=== PATIENT | male | born 1990 | race African-American/Black ===

== ENCOUNTER → 2020-07-24 | Day surgery (SDC) | payer OTHER ==
[~2020-07-24] MED LIST: CYCL-331 PO; FAMOTIDINE 20 MG/2 ML VIAL ONE; GLYCOPYRROLATE 1 MG/5 ML VIAL. ONE; HYDR-2155; HYDR-2155 PO; IPRATRPIUM/ALBUTEROL 0.5/2.5MG 3 ML NEBU. NEB PRN; IV RINGERS SOLUTION,LACTATED 1,000 ML IV SCH; LIDOCAINE 2% PF 5 ML VIAL. ONE; MIDAZOLAM HCL PF 2 MG/2 ML VIAL. IV ONE; ONDANSETRON PF 4 MG/2 ML VIAL. IV PRN; OXYC15TA60 PO; PANT40TA3; PANT40TA3 PO; PROPOFOL 10,000 MCG/ML (20ML) VIAL IV ONE
[2020-07-24 12:50] VITALS: BP 116/65
--- NOTE | 2020-07-29 08:08 | PATHOLOGY ---
[facility] Accession Number: [id number] . 01 Material submitted: . stomach - ANTRUM BIOPSY. Modifiers: ANTRUM . 01 Clinical history: . STOMACH PAIN EGD COLONOSCOPY . 02 Diagnosis: Gastric biopsies, antrum: - Chronic gastritis, mild. (M:[facility]; 07/28/2020) [facility] 07/28/2020 1603 Local . 02 Comment: Sections of the gastric biopsy reveal tangentially oriented segments of gastric antral/body transition mucosa showing congestion and very mild chronic inflammation. A properly controlled immunoperoxidase stain for Helicobacter is negative for Helicobacter organisms. (JPM:[facility]bey; 07/28/2020) . Special stain performed: Immunoperoxidase stain for Helicobacter on A1 . 02 Electronically signed: . Nasir Vega MD, Pathologist NPI- [id number] . 01 Gross description: . The specimen is received in formalin, labeled "Lewis Hagan, antrum biopsy" received as 2 fragments of soft méndez tissue measuring up to 0.6 cm. Entirely submitted in A1. ([facility]; 07/27/2020) [facility] 07/28/2020 1600 Local . 02 Pathologist provided ICD-10: K29.50 . 02 CPT . 723092, [id number] Specimen Comment: A courtesy copy of this report has been sent to [phone] Specimen Comment: Report sent to Performed at: 01 [facility] [address], [place] [id number] MD Emerson Driscoll MD Phone: [phone] Performed at: 02 [facility] [address] [place], [place] [id number] MD Nasir Vega MD Phone: [phone]
== END | disposition home or self-care (01) ==
LOC: SURG 10:34
PROVIDERS: ATTEND Internal Medicine Gastroenterology
DX: R12 Heartburn (principal); K44.9 Diaphragmatic hernia without obstruction or gangrene; K29.50 Unspecified chronic gastritis without bleeding; K21.9 Gastro-esophageal reflux disease without esophagitis; I10 Essential (primary) hypertension; E78.00 Pure hypercholesterolemia, unspecified; Z79.899 Other long term (current) drug therapy
CPT/HCPCS: 43239; J2001; J2704; J3490; J7120

== ENCOUNTER → 2020-08-27 | Outpatient (CLI) | payer OTHER ==
[2020-07-24 12:50] VITALS: BP 116/65
[~2020-08-27] MED LIST changes: -FAMOTIDINE 20 MG/2 ML VIAL ONE; -GLYCOPYRROLATE 1 MG/5 ML VIAL. ONE; -IPRATRPIUM/ALBUTEROL 0.5/2.5MG 3 ML NEBU. NEB PRN; -IV RINGERS SOLUTION,LACTATED 1,000 ML IV SCH; -LIDOCAINE 2% PF 5 ML VIAL. ONE; -MIDAZOLAM HCL PF 2 MG/2 ML VIAL. IV ONE; -ONDANSETRON PF 4 MG/2 ML VIAL. IV PRN; -PROPOFOL 10,000 MCG/ML (20ML) VIAL IV ONE
--- NOTE | 2020-08-27 10:30 | RAD ---
STUDY: US Abdomen Complete INDICATION: Left upper quadrant abdominal pain. COMPARISON: No prior ultrasound. TECHNIQUE: Real-time grayscale and color Doppler sonographic evaluation of the abdomen. Findings: Pancreas: Poorly evaluated due to bowel gas. What is seen of the pancreas is unremarkable. Liver: Upper limits of normal for size at 18 cm longitudinal. Mildly increased parenchymal echogenici ty. Aorta/IVC/Main Portal Vein: Nonaneurysmal aorta. Patent main portal vein with normal flow direction. Unremarkable IVC at the liver. Gall Bladder: Normal wall thickness at 0.2 cm. No stones or sludge were visualized. Common Bile Duct: Normal common duct caliber at 0.4 cm. Right Kidney: Measures 13.3 cm in length. No complex cyst or mass. No hydronephrosis. Left Kidney: Measures 11.5 cm in length. No complex cyst or mass. No hydronephrosis. Spleen: Within normal limits for size measuring 11.4 cm longitudinal. Miscellaneous: None. Impression: 1. No sonographic abnormality is identified to explain the patient's left upper quadrant pain. The s pleen is within normal limits for size and the left kidney is unremarkable. 2. Mildly increased hepatic parenchymal echogenicity suggesting a component of fatty infiltration. Electronically signed by: LAURIE GONZALES MD (08/27/2020 10:28 AM) [id number]
== END ==
LOC: US 07:59
PROVIDERS: ATTEND Preventive Medicine Occupational Medicine
DX: R10.13 Epigastric pain (principal)
CPT/HCPCS: 76700